=== PATIENT | male | born 2000 | race Hispanic/Latino ===

== ENCOUNTER 2023-10-13 21:53 | Emergency (ER) | payer OTHER ==
[2023-10-13] MEDS ORDERED: Lidocaine 1% (PF) 30 ML VIAL ONE (22:10)
== END 2023-10-14 00:06 | disposition home or self-care (01) ==
LOC: ERS 21:53
DX: S61.211A Laceration without foreign body of left index finger without damage to nail, initial encounter (principal); W26.8XXA Contact with other sharp object(s), not elsewhere classified, initial encounter; Y93.G3 Activity, cooking and baking; Z75.8 Other problems related to medical facilities and other health care
CPT/HCPCS: 12002; J2001